=== PATIENT | male | born 2000 | race Caucasian/White ===

== ENCOUNTER 2020-02-04 09:46 | Emergency (ER) | payer OTHER ==
[2020-02-04] MEDS ORDERED: Ondansetron 4 MG Tab.DIS PO ONE (09:57)
[2020-02-04] MEDS ORDERED: Meclizine 25 MG Tab PO ONE (09:58)
[2020-02-04] MEDS ORDERED: Sodium Chloride 0.9% 10 ML Syringe FLUSH PRN (10:02)
[2020-02-04] MEDS ORDERED: Ondansetron 4 MG/2 ML SDV IVPUSH ONE (10:02)
[2020-02-04] MEDS ORDERED: Sodium Chloride 0.9% 2.5 ML Syringe FLUSH PRN ×2 (10:02)
--- NOTE | 2020-02-04 10:19 | EDM.PDOC ---
ED HPI GENERAL MEDICAL PROBLEM - General Chief Complaint: Abdominal Pain Stated Complaint: STOMACH PAIN Time Seen by Provider: 02/04/20 09:57 - History of Present Illness INITIAL COMMENTS - FREE TEXT/NARRATIVE: History of present illness: [Patient presents with abdominal pain and inability to have a bowel movement. He is had this problem in the past seen in the ED and discharged back in June with some medication that he cannot recall the name of. Patient is unable to tell me when he last had a bowel movement he said he tried last night unsuccessfully. He has had some nausea and vomiting and and anorexia with this no fever or chills no prior surgeries no other medical problems denies any medication specifically denies any opioid use. ] Review of systems: As per history of present illness and below otherwise all systems reviewed and negative. Past medical history: As per history of present illness and as reviewed below otherwise noncontributory. Surgical history: As per history of present illness and as reviewed below otherwise noncontributory. Social history: No reported history of drug or alcohol abuse. Family history: As per history of present illness and as reviewed below otherwise noncontributory. Physical exam: HEENT: Atraumatic, normocephalic, pupils reactive, negative for conjunctival pallor or scleral icterus, mucous membranes moist, throat clear, neck supple, nontender, trachea midline. Lungs: Clear to auscultation, breath sounds equal bilaterally, chest nontender. Heart: S1S2, regular, negative for clicks, rubs, or JVD. Abdomen: Soft, nondistended, mild diffuse left lower quadrant tenderness rebound no guarding. Negative for masses or hepatosplenomegaly. Negative for costovertebral tenderness. Pelvis: Stable nontender. Genitourinary: Deferred. Rectal: Deferred. Extremities: Atraumatic, negative for cords or calf pain. Neurovascular unremarkable. Neuro: Awake, alert, oriented. Cranial nerves II through XII unremarkable. Cerebellum unremarkable. Motor and sensory unremarkable throughout. Exam nonfocal. Diagnostics: [] Therapeutics: [] Impression: Constipation, abdominal pain [] Plan: Studies will be obtained Zofran will be given saline will be given patient will be reassessed. [] Definitive disposition and diagnosis as appropriate pending reevaluation and review of above. Abdominal Pain Score (Numeric/FACES): 7 - Related Data Allergies Allergy/AdvReac Type Severity Reaction Status Date / Time Penicillins Allergy Cannot Verified 02/04/20 09:55 Remember Home Meds: Home Meds polyethylene glycoL 3350 [MiraLAX] 17 gm PO BEDTIME 10 Days #10 packet 02/04/20 [Rx] Past Medical History - Past Health History Medical/Surgical History: Denies Medical/Surgical History HEENT History: Reports: None Cardiovascular History: Reports: None Respiratory History: Reports: None Gastrointestinal History: Reports: None Genitourinary History: Reports: None Musculoskeletal History: Reports: None Neurological History: Reports: None Psychiatric History: Reports: None Endocrine/Metabolic History: Reports: None Hematologic History: Reports: None Immunologic History: Reports: None Oncologic (Cancer) History: Reports: None Dermatologic History: Reports: None - Infectious Disease History Infectious Disease History: Reports: Chicken Pox - Past Surgical History Head Surgeries/Procedures: Reports: None Social & Family History - Family History Family Medical History: Noncontributory - Tobacco Use Smoking Status *Q: Current Every Day Smoker Years of Tobacco use: 6 Packs/Tins Daily: 0.5 Used Tobacco, but Quit: No Second Hand Smoke Exposure: Yes - Caffeine Use Caffeine Use: Reports: Coffee, Soda, Tea - Recreational Drug Use Recreational Drug Use: Yes Drug Use in Last 12 Months: Yes Recreational Drug Type: Reports: Marijuana/Hashish Recreational Drug Use Frequency: Daily ED ROS GENERAL - Review of Systems Review Of Systems: See Below ED EXAM, GENERAL - Physical Exam Exam: See Below Course - Vital Signs Text/Narrative:: Patient was reexamined at 11 AM he is doing better the lab studies are completely unremarkable vital signs are stable will be discharged home on MiraLAX we did some extensive discussion and teaching about diet and including a vegetable perhaps once in a while and his regular diet. Ducted to increase fiber and fluid intake he is to use Senokot at night and he was instructed to start on MiraLAX to help clean out his constipation. For to primary care for further care Last Recorded V/S: Last Vital Signs Temp 36.0 C L 02/04/20 09:55 Pulse 60 02/04/20 10:39 Resp 16 02/04/20 10:39 BP 132/66 02/04/20 10:39 Pulse Ox 98 02/04/20 10:39 - Orders/Labs/Meds Orders: Active Orders 24 hr Category Date Time Status Sodium Chloride 0.9% [Normal Saline] 500 ml Med 02/04/20 10:30 Active IV .BOLUS Sodium Chloride 0.9% [Saline Flush] Med 02/04/20 10:02 Active 10 ml FLUSH ASDIRECTED PRN Sodium Chloride 0.9% [Saline Flush] Med 02/04/20 10:02 Active 2.5 ml FLUSH ASDIRECTED PRN Sodium Chloride 0.9% [Saline Flush] Med 02/04/20 10:02 Active 2.5 ml FLUSH ASDIRECTED PRN Saline Lock Insert [OM.PC] Stat Oth 02/04/20 10:02 Ordered Medication Orders Sodium Chloride (Normal Saline) 500 mls @ 999 mls/hr IV .BOLUS WARREN Last Admin: 02/04/20 10:38 Dose: 999 mls/hr Sodium Chloride (Saline Flush) 2.5 ml FLUSH ASDIRECTED PRN PRN Reason: Keep Vein Open Last Admin: 02/04/20 10:08 Dose: 2.5 ml Sodium Chloride (Saline Flush) 10 ml FLUSH ASDIRECTED PRN PRN Reason: Keep Vein Open Last Admin: 02/04/20 10:08 Dose: 10 ml Sodium Chloride (Saline Flush) 2.5 ml FLUSH ASDIRECTED PRN PRN Reason: Keep Vein Open Last Admin: 02/04/20 10:08 Dose: 2.5 ml Labs: Laboratory Tests 02/04/20 02/04/20 Range/Units 10:10 10:10 WBC 6.67 (4.0-11.0) K/uL RBC 5.15 (4.50-5.90) M/uL Hgb 15.0 (13.0-17.0) g/dL Hct 44.6 (38.0-50.0) % MCV 86.6 (80.0-98.0) fL MCH 29.1 (27.0-32.0) pg MCHC 33.6 (31.0-37.0) g/dL RDW Std Deviation 42.2 (28.0-62.0) fl RDW Coeff of Lazara 13 (11.0-15.0) % Plt Count 281 (150-400) K/uL MPV 9.60 (7.40-12.00) fL Neut % (Auto) 55.2 (48.0-80.0) % Lymph % (Auto) 32.8 (16.0-40.0) % Gillespie % (Auto) 8.2 (0.0-15.0) % Eos % (Auto) 3.4 (0.0-7.0) % Baso % (Auto) 0.4 (0.0-1.5) % Neut # (Auto) 3.7 (1.4-5.7) K/uL Lymph # (Auto) 2.2 (0.6-2.4) K/uL Gillespie # (Auto) 0.6 (0.0-0.8) K/uL Eos # (Auto) 0.2 (0.0-0.7) K/uL Baso # (Auto) 0.0 (0.0-0.1) K/uL Nucleated RBC % 0.0 /100WBC Nucleated RBCs # 0 K/uL Sodium 141 (136-148) mmol/L Potassium 3.8 (3.5-5.1) mmol/L Chloride 106 (98-107) mmol/L Carbon Dioxide 27.2 (21.0-32.0) mmol/L BUN 9 (7.0-18.0) mg/dL Creatinine 1.1 (0.8-1.3) mg/dL Est Cr Clr Drug Dosing 103.64 mL/min Estimated GFR (MDRD) > 60.0 ml/min Glucose 79 (74-106) mg/dL Calcium 8.5 (8.5-10.1) mg/dL Total Bilirubin 0.2 (0.2-1.0) mg/dL AST 14 L (15-37) IU/L ALT 8 L (14-63) IU/L Alkaline Phosphatase 82 (46-116) U/L Total Protein 7.0 (6.4-8.2) g/dL Albumin 4.0 (3.4-5.0) g/dL Globulin 3.0 (2.6-4.0) g/dL Albumin/Globulin Ratio 1.3 (0.9-1.6) Lipase 168 (73-393) U/L Meds: Medications Generic Name Dose Route Start Last Admin Trade Name Freq PRN Reason Stop Dose Admin Sodium Chloride 500 mls @ 999 mls/hr 02/04/20 10:30 02/04/20 10:38 Normal Saline IV 999 mls/hr .BOLUS WARREN Administration Sodium Chloride 2.5 ml 02/04/20 10:02 02/04/20 10:08 Saline Flush FLUSH 2.5 ml ASDIRECTED PRN Administration Keep Vein Open Sodium Chloride 10 ml 02/04/20 10:02 02/04/20 10:08 Saline Flush FLUSH 10 ml ASDIRECTED PRN Administration Keep Vein Open Sodium Chloride 2.5 ml 02/04/20 10:02 02/04/20 10:08 Saline Flush FLUSH 2.5 ml ASDIRECTED PRN Administration Keep Vein Open Discontinued Medications Generic Name Dose Route Start Last Admin Trade Name Freq PRN Reason Stop Dose Admin Ondansetron HCl 4 mg 02/04/20 10:02 02/04/20 10:08 Zofran IVPUSH 02/04/20 10:03 4 mg ONETIME ONE Administration Departure - Departure Time of Disposition: 11:04 Disposition: Home, Self-Care 01 Condition: Good Clinical Impression: Abdominal pain Constipation Qualifiers: Constipation type: unspecified constipation type Qualified Code(s): K59.00 - Constipation, unspecified - Discharge Information *PRESCRIPTION DRUG MONITORING PROGRAM REVIEWED*: Not Applicable *COPY OF PRESCRIPTION DRUG MONITORING REPORT IN PATIENT BAUTISTA: Not Applicable Prescriptions: polyethylene glycoL 3350 [MiraLAX] 17 gm PO BEDTIME 10 Days #10 packet Instructions: Constipation, Adult, Abdominal Pain, Adult Referrals: PCP,None [Primary Care Provider] - Forms: ED Department Discharge Additional Instructions: The following information is given to patients seen in the emergency department who are being discharged to home. This information is to outline your options for follow-up care. We provide all patients seen in our emergency department with a follow-up referral. The need for follow-up, as well as the timing and circumstances, are variable depending upon the specifics of your emergency department visit. If you don't have a primary care physician on staff, we will provide you with a referral. We always advise you to contact your personal physician following an emergency department visit to inform them of the circumstance of the visit and for follow-up with them and/or the need for any referrals to a consulting specialist. The emergency department will also refer you to a specialist when appropriate. This referral assures that you have the opportunity for follow-up care with a specialist. All of these measure are taken in an effort to provide you with optimal care, which includes your follow-up. Under all circumstances we always encourage you to contact your private physician who remains a resource for coordinating your care. When calling for follow-up care, please make the office aware that this follow-up is from your recent emergency room visit. If for any reason you are refused follow-up, please contact the [facility] Emergency Department at and asked to speak to the emergency department charge nurse. [facility] [address] [place] [id number] [facility] [address] [place] [id number] Sepsis Event Note - Evaluation Sepsis Screening Result: No Definite Risk - Focused Exam Vital Signs: Vital Signs Temp Pulse Resp BP Pulse Ox 02/04/20 10:39 60 16 132/66 98 02/04/20 09:55 36.0 C L 76 15 141/71 H 98 Date Exam was Performed: 02/04/20 Time Exam was Performed: 11:02 - My Orders Last 24 Hours: My Active Orders 02/04/20 10:02 Sodium Chloride 0.9% [Saline Flush] 10 ml FLUSH ASDIRECTED PRN Sodium Chloride 0.9% [Saline Flush] 2.5 ml FLUSH ASDIRECTED PRN Sodium Chloride 0.9% [Saline Flush] 2.5 ml FLUSH ASDIRECTED PRN Saline Lock Insert [OM.PC] Stat 02/04/20 10:30 Sodium Chloride 0.9% [Normal Saline] 500 ml IV .BOLUS - Assessment/Plan Last 24 Hours: My Active Orders 02/04/20 10:02 Sodium Chloride 0.9% [Saline Flush] 10 ml FLUSH ASDIRECTED PRN Sodium Chloride 0.9% [Saline Flush] 2.5 ml FLUSH ASDIRECTED PRN Sodium Chloride 0.9% [Saline Flush] 2.5 ml FLUSH ASDIRECTED PRN Saline Lock Insert [OM.PC] Stat 02/04/20 10:30 Sodium Chloride 0.9% [Normal Saline] 500 ml IV .BOLUS
[2020-02-04] MEDS ORDERED: Sodium Chloride 0.9% 500 ML IV SCH (10:30)
[2020-02-04 10:46] LABS: BLOOD UREA NITROGEN,BUN 9 mg/dL (7.0-18.0); CARBON DIOXIDE,CO2 27.2 mmol/L (21.0-32.0); CHLORIDE,CL 106 mmol/L (98-107); GLUCOSE RANDOM 79 mg/dL (74-106); LIPASE 168 U/L (73-393); POTASSIUM,K 3.8 mmol/L (3.5-5.1); SODIUM,NA 141 mmol/L (136-148)
== END 2020-02-04 11:19 | disposition home or self-care (01) ==
LOC: MW.ED 09:46
DX: K59.00 Constipation, unspecified (principal); R11.2 Nausea with vomiting, unspecified; F17.210 Nicotine dependence, cigarettes, uncomplicated; Z88.0 Allergy status to penicillin
CPT/HCPCS: 36415; 80053; 83690; 85025; 96361; 96374; 99284; J2405; J7040; 99282

== ENCOUNTER 2020-03-18 06:19 | Emergency (ER) | payer OTHER ==
[2020-03-18] MEDS ORDERED: Acetaminophen/HYDROcodone 325-5 MG Tab PO ONE (06:43)
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
--- NOTE | 2020-03-18 07:44 | CR ---
Indication: Injury and pain Technique: Left elbow 3 views Comparison: None Findings: Bones: Alignment is normal. No fractures or bone lesions. Joint spaces: Unremarkable. No sign of joint effusion. Soft tissues: Unremarkable. Impression: No sign of acute injury. Dictated by Alex Doyle MD @ Mar 18 2020 7:41AM Signed by Dr. Alex Doyle @ Mar 18 2020 7:42AM
--- NOTE | 2020-03-18 07:44 | CR ---
Indication: Injury and pain Technique: Left forearm 2 views Comparison: None Findings: Bones: Alignment is normal. No fractures or bone lesions. Joint spaces: Unremarkable. Soft tissues: Unremarkable. Impression: No sign of acute injury. Dictated by Alex Doyle MD @ Mar 18 2020 7:42AM Signed by Dr. Alex Doyle @ Mar 18 2020 7:44AM
--- NOTE | 2020-03-18 07:48 | CR ---
Indication: Injury and pain Technique: Left hand 3 views Comparison: None Findings: Bones: Alignment is normal. No fractures or bone lesions. Joint spaces: Unremarkable. Soft tissues: Unremarkable. Impression: No sign of acute injury. Dictated by Alex Doyle MD @ Mar 18 2020 7:44AM Signed by Dr. Alex Doyle @ Mar 18 2020 7:47AM
--- NOTE | 2020-03-18 07:51 | CR ---
Indication: Injury and pain Technique: Left wrist 3 view Comparison: None Findings: Bones: Alignment is normal. No fractures or bone lesions. Joint spaces: Unremarkable. Soft tissues: Unremarkable. Impression: No sign of acute injury in the left wrist. Dictated by Alex Doyle MD @ Mar 18 2020 7:47AM Signed by Dr. Alex Doyle @ Mar 18 2020 7:48AM
== END 2020-03-18 07:35 | disposition home or self-care (01) ==
LOC: MW.ED 06:19
DX: S63.502A Unspecified sprain of left wrist, initial encounter (principal); F17.210 Nicotine dependence, cigarettes, uncomplicated; V19.9XXA Pedal cyclist (driver) (passenger) injured in unspecified traffic accident, initial encounter
CPT/HCPCS: 73080; 73090; 73110; 73130; 99283; A9270

== ENCOUNTER 2020-09-29 00:10 | Emergency (ER) | payer OTHER ==
--- NOTE | 2020-09-29 00:21 | EDM.PDOC ---
ED HPI GENERAL MEDICAL PROBLEM - General Chief Complaint: Genitourinary Problem Stated Complaint: GROIN AREA HURTS Time Seen by Provider: 09/29/20 00:11 - History of Present Illness INITIAL COMMENTS - FREE TEXT/NARRATIVE: History of present illness: [] Patient has testicle pain in both testicles for more than several days. Its been little worse for 2 or 3 days. Its worse tonight and fairly severe. It is associated with nausea. There is no swelling. There is no urethral discharge. He does not think he has exposure to STD. He does not have any vomiting diarrhea or trouble urinating. The patient enjoys good health. He smokes and uses marijuana but does not drink or use drugs. Review of systems: As per history of present illness and below otherwise all systems reviewed and negative. Past medical history: As per history of present illness and as reviewed below otherwise noncontributory. Surgical history: As per history of present illness and as reviewed below otherwise noncontributory. Social history: No reported history of drug or alcohol abuse. Family history: As per history of present illness and as reviewed below otherwise noncontributory. Physical exam: Constitutional - well developed, well-nourished and in no acute distress HEENT - normocephalic, no evidence of trauma - external nose and mouth normal - no mass in neck and no JVD - mucosae moist EYES - full EOM, PERRL, no icterus - no evidence of inflammation, injection, or drainage Respiratory - no respiratory distress, equal bilateral expansion, lungs clear to auscultation and no abnormal lung sounds Cardiovascular - Regular Rhythm with S1 and S2 appreciated and no murmur, gallop or rub. GI - abdomen soft without distension or organomegaly - normal bowel sounds - no guard or rebound -the patient's external genitalia normal adult male. He does not have any significant tenderness redness or enlargement of the testicles. Scrotal contents appear normal. Musculoskeletal no gross deformity of long bones or joints - no tenderness, swelling or edema Neurologic - Alert and oriented times four - CN II-XII grossly intact - motor sensory and coordination symmetrically normal Psychiatric - appropriate mood and affect with normal thought content Hematologic - No petechiae or purpura - mucosa appropriate color and sclera not pale - normal nail bed color and refill Integument - no rash or evidence of trauma - normal turgor Diagnostics: [] Therapeutics: [] Impression: [] Plan: [] Definitive disposition and diagnosis as appropriate pending reevaluation and review of above. Bilateral Scrotum Pain Score (Numeric/FACES): 8 - Related Data Allergies Allergy/AdvReac Type Severity Reaction Status Date / Time Penicillins Allergy Cannot Verified 09/29/20 00:16 Remember Home Meds: Home Meds Doxycycline [Vibramycin] 100 mg PO BID 10 Days #20 cap 09/29/20 [Rx] Past Medical History - Past Health History Medical/Surgical History: Denies Medical/Surgical History HEENT History: Reports: None Cardiovascular History: Reports: None Respiratory History: Reports: None Gastrointestinal History: Reports: None Genitourinary History: Reports: None Musculoskeletal History: Reports: None Neurological History: Reports: None Psychiatric History: Reports: None Endocrine/Metabolic History: Reports: None Insulin Pump Model and Plate Fitter: None Hematologic History: Reports: None Immunologic History: Reports: None Oncologic (Cancer) History: Reports: None Dermatologic History: Reports: None - Infectious Disease History Infectious Disease History: Reports: None - Past Surgical History Head Surgeries/Procedures: Reports: None Social & Family History - Family History Family Medical History: No Pertinent Family History - Caffeine Use Caffeine Use: Reports: Soda ED ROS GENERAL - Review of Systems Review Of Systems: Comprehensive ROS is negative, except as noted in HPI. ED EXAM, GENERAL - Physical Exam Exam: See Below Free Text/Narrative:: Physical exam is in the HPI Course - Vital Signs Text/Narrative:: The sound revealed no pathology. Blood flow is good in both testicles. Patient discharged in satisfactory condition. Just is unavailable in [place] for the next 2 months. Patient will be advised to call [facility] if he needs follow-up. Last Recorded V/S: Last Vital Signs Temp 36.4 C 09/29/20 00:17 Pulse 110 H 09/29/20 00:17 Resp 16 09/29/20 00:17 BP 162/88 H 09/29/20 00:17 Pulse Ox 98 09/29/20 00:17 - Orders/Labs/Meds Orders: Active Orders 24 hr Category Date Time Status Scrotal Duplex Ltd [US] Stat Exams 09/29/20 00:20 Ordered Scrotum and Contents [US] Routine Exams 09/29/20 Ordered CHLAMYDIA AND GONORRHEA BY [facility] Stat Lab 09/29/20 00:23 Received Labs: Laboratory Tests 09/29/20 09/29/20 09/29/20 Range/Units 00:23 00:30 00:30 WBC 8.43 (4.0-11.0) K/uL RBC 5.03 (4.50-5.90) M/uL Hgb 14.9 (13.0-17.0) g/dL Hct 42.8 (38.0-50.0) % MCV 85.1 (80.0-98.0) fL MCH 29.6 (27.0-32.0) pg MCHC 34.8 (31.0-37.0) g/dL RDW Std Deviation 40.0 (28.0-62.0) fl RDW Coeff of Lazara 13 (11.0-15.0) % Plt Count 291 (150-400) K/uL MPV 9.10 (7.40-12.00) fL Neut % (Auto) 50.5 (48.0-80.0) % Lymph % (Auto) 38.9 (16.0-40.0) % [place] % (Auto) 7.6 (0.0-15.0) % Eos % (Auto) 2.5 (0.0-7.0) % Baso % (Auto) 0.5 (0.0-1.5) % Neut # (Auto) 4.3 (1.4-5.7) K/uL Lymph # (Auto) 3.3 H (0.6-2.4) K/uL [place] # (Auto) 0.6 (0.0-0.8) K/uL Eos # (Auto) 0.2 (0.0-0.7) K/uL Baso # (Auto) 0.0 (0.0-0.1) K/uL Sodium 140 (136-148) mmol/L Potassium 3.7 (3.5-5.1) mmol/L Chloride 105 (98-107) mmol/L Carbon Dioxide 26.2 (21.0-32.0) mmol/L BUN 23 H (7.0-18.0) mg/dL Creatinine 1.1 (0.8-1.3) mg/dL Est Cr Clr Drug Dosing 95.41 mL/min Estimated GFR (MDRD) > 60.0 ml/min Glucose 97 (74-106) mg/dL Calcium 9.3 (8.5-10.1) mg/dL Total Bilirubin 0.2 (0.2-1.0) mg/dL AST 19 (15-37) IU/L ALT 19 (14-63) IU/L Alkaline Phosphatase 73 (46-116) U/L Total Protein 8.0 (6.4-8.2) g/dL Albumin 4.4 (3.4-5.0) g/dL Globulin 3.6 (2.6-4.0) g/dL Albumin/Globulin Ratio 1.2 (0.9-1.6) Urine Color YELLOW Urine Appearance CLEAR Urine pH 6.0 (5.0-8.0) Ur Specific [place] 1.025 (1.001-1.035) Urine Protein NEGATIVE (NEGATIVE) mg/dL Urine Glucose (UA) NEGATIVE (NEGATIVE) mg/dL Urine Ketones NEGATIVE (NEGATIVE) mg/dL Urine Occult Blood NEGATIVE (NEGATIVE) Urine Nitrite NEGATIVE (NEGATIVE) Urine Bilirubin NEGATIVE (NEGATIVE) Urine Urobilinogen 0.2 (<2.0) EU/dL Ur Leukocyte Esterase NEGATIVE (NEGATIVE) Departure - Departure Time of Disposition: 01:33 Disposition: Home, Self-Care 01 Condition: Good Clinical Impression: Scrotal pain - Discharge Information Instructions: Testicular Self-Exam, [id number] Referrals: PCP,None [Primary Care Provider] - Forms: ED Department Discharge Additional Instructions: The urologist in [place] is out of town until November 08 if you get worse despite better when we try antibiotics and anti-inflammatory medicine then you should call the [facility] and [place] and arrange to see their urologist. If he suddenly has swelling or discoloration with twisting of the testicle you need to come back immediately. Try various kinds of different support of boxers or briefs to see if a change in the position will help. Pending cultures I will start antibiotics although these may be discontinued when the culture results come back. [facility] - [facility] [address] [place] [address] [id number] [address] [id number] The following information is given to patients seen in the emergency department who are being discharged to home. This information is to outline your options for follow-up care. We provide all patients seen in our emergency department with a follow-up referral. The need for follow-up, as well as the timing and circumstances, are variable depending upon the specifics of your emergency department visit. If you don't have a primary care physician on staff, we will provide you with a referral. We always advise you to contact your personal physician following an emergency department visit to inform them of the circumstance of the visit and for follow-up with them and/or the need for any referrals to a consulting specialist. The emergency department will also refer you to a specialist when appropriate. This referral assures that you have the opportunity for follow-up care with a specialist. All of these measure are taken in an effort to provide you with optimal care, which includes your follow-up. Under all circumstances we always encourage you to contact your private physician who remains a resource for coordinating your care. When calling for follow-up care, please make the office aware that this follow-up is from your recent emergency room visit. If for any reason you are refused follow-up, please contact the [facility] Emergency Department at and asked to speak to the emergency department charge nurse. Sepsis Event Note (ED) - Focused Exam Vital Signs: Vital Signs Temp Pulse Resp BP Pulse Ox 09/29/20 00:17 36.4 C 110 H 16 162/88 H 98 - My Orders Last 24 Hours: My Active Orders 09/29/20 Scrotum and Contents [US] Routine 09/29/20 00:20 Scrotal Duplex Ltd [US] Stat 09/29/20 00:23 CHLAMYDIA AND GONORRHEA BY [facility] Stat - Assessment/Plan Last 24 Hours: My Active Orders 09/29/20 Scrotum and Contents [US] Routine 09/29/20 00:20 Scrotal Duplex Ltd [US] Stat 09/29/20 00:23 CHLAMYDIA AND GONORRHEA BY [facility] Stat
[2020-09-29 00:58] LABS: BLOOD UREA NITROGEN,BUN 23 mg/dL (7.0-18.0); CARBON DIOXIDE,CO2 26.2 mmol/L (21.0-32.0); CHLORIDE,CL 105 mmol/L (98-107); GLUCOSE RANDOM 97 mg/dL (74-106); POTASSIUM,K 3.7 mmol/L (3.5-5.1); SODIUM,NA 140 mmol/L (136-148)
--- NOTE | 2020-09-29 01:52 | US ---
INDICATION: Bilateral scrotal pain TECHNIQUE: Ultrasound scrotum and contents. Real-time otto scale sonographic images with spectral and color Doppler imaging of the testicles were obtained. COMPARISON: None FINDINGS: Right testis: 4.7 x 1 9 x 2.6 cm. The right testis is appearance and echotexture. Normal arterial and venous blood flow seen in the right testis. Left testis: 3.8 x 1.8 x 2.7 cm. The left testis is appearance and echotexture. Normal arterial and venous blood flow seen in the left testis. Epididymis: The epididymis are unremarkable in size and echogenicity and have normal blood flow. Soft tissue: A trace physiologic right hydrocele is noted. No significant hydrocele or varicocele noted. No adenopathy is seen. IMPRESSION: 1. Unremarkable scrotal ultrasound. Dictated by Feliz Duenas MD @ 09/29/2020 1:50:25 AM Dictated by: Feliz Duenas MD @ 09/29/2020 01:50:29 (Electronically Signed)
--- NOTE | 2020-09-29 10:28 | US ---
EXAM DATE: 09/29/20 PATIENT'S AGE: 20 Patient: [facility] Study: US-Testicle Bilateral -09/29/2020 1:42:57 AM Ordering Physician: Apolinar Jean Final Report: INDICATION: Bilateral scrotal pain TECHNIQUE: Ultrasound scrotum and contents. Real-time otto scale sonographic images with spectral and color Doppler imaging of the testicles were obtained. COMPARISON: None FINDINGS: Right testis: 4.7 x 1 9 x 2.6 cm. The right testis is appearance and echotexture. Normal arterial and venous blood flow seen in the right testis. Left testis: 3.8 x 1.8 x 2.7 cm. The left testis is appearance and echotexture. Normal arterial and venous blood flow seen in the left testis. Epididymis: The epididymis are unremarkable in size and echogenicity and have normal blood flow. Soft tissue: A trace physiologic right hydrocele is noted. No significant hydrocele or varicocele noted. No adenopathy is seen. IMPRESSION: 1. Unremarkable scrotal ultrasound. Dictated by Feliz Duenas MD @ 09/29/2020 1:50:25 AM Dictated by: Feliz Duenas MD @ 09/29/2020 01:50:29 Signed by: Feliz Duenas MD @09/29/2020 1:50:29 AM (Electronic Signature) Report Signed by Proxy. MAIA
[2020-09-30 15:07] LABS: C.TRACHOMATIS BY TMA Negative (Negative); N.GONORRHOEAE BY TMA Negative (Negative)
== END 2020-09-29 01:40 | disposition home or self-care (01) ==
LOC: MW.ED 00:10
DX: N50.82 Scrotal pain (principal); Z88.0 Allergy status to penicillin
CPT/HCPCS: 36415; 76870; 76870-26; 80053; 81003; 85025; 87491; 87591; 93976; 93976-26; 99283; 99284-25

== ENCOUNTER 2022-08-31 16:26 | Emergency (ER) | payer SELFPAY ==
[2022-08-31] MEDS ORDERED: Metoclopramide 10 MG/2 ML SDV IVPUSH ONE (17:01)
[2022-08-31] MEDS ORDERED: diphenhydrAMINE 50 MG/ML SDV IVPUSH ONE (17:01)
[2022-08-31] MEDS ORDERED: Ondansetron 4 MG/2 ML SDV IVPUSH ONE (17:01)
[2022-08-31] MEDS ORDERED: Sodium Chloride 0.9% 1,000 ML IV ONE (17:01)
[2022-08-31] MEDS ORDERED: Ketorolac 30 MG/ML SDV IVPUSH ONE (17:01)
[2022-08-31 17:31] LABS: CORONAVIRUS COVID-19 NAA NEGATIVE (NEGATIVE); INFLUENZA A NAA NEGATIVE (NEGATIVE); INFLUENZA B NAA NEGATIVE (NEGATIVE)
[2022-08-31 18:30] LABS: CARBON DIOXIDE,CO2 27.8 mmol/L (21.0-32.0); POTASSIUM,K 3.4 mmol/L (3.5-5.1)
== END 2022-08-31 18:58 | disposition home or self-care (01) ==
LOC: MW.ED 16:26
DX: G43.909 Migraine, unspecified, not intractable, without status migrainosus (principal); J06.9 Acute upper respiratory infection, unspecified; F17.210 Nicotine dependence, cigarettes, uncomplicated; Z88.0 Allergy status to penicillin; Z20.822 Contact with and (suspected) exposure to COVID-19
CPT/HCPCS: 0240U; 36415; 71045; 80053; 85025; 96361; 96374; 96375; 99285; J1200; J1885; J2405; J2765; J7030

== ENCOUNTER 2023-05-05 22:37 | Emergency (ER) | payer SELFPAY ==
[2023-05-05] MEDS ORDERED: Octyl 2-Cyanoacrylate 1 g/1 mL 1 APPLIC PEN TOP ONE (23:05)
== END 2023-05-05 23:59 | disposition home or self-care (01) ==
LOC: MW.ED 22:37
DX: S61.012A Laceration without foreign body of left thumb without damage to nail, initial encounter (principal); F17.210 Nicotine dependence, cigarettes, uncomplicated; Z88.0 Allergy status to penicillin; Z88.8 Allergy status to other drugs, medicaments and biological substances; W26.0XXA Contact with knife, initial encounter
CPT/HCPCS: 12001; 99282; A9270; 99283